=== PATIENT | female | born 1990 | race Caucasian/White ===

== ENCOUNTER 2020-08-01 00:03 | Emergency (ER) | payer OTHER ==
[~2020-08-01] VITALS: Ht 165.1 cm; Wt 79.4 kg
[~2020-08-01 00:03] MED LIST: CRUTCH4 USE; NAPR500 PO; Pepcid40 MG PO; Zofran Odt4 MG SL
== END 2020-08-01 00:54 | disposition home or self-care (01) ==
LOC: ER 00:03
DX: S01.01XA Laceration without foreign body of scalp, initial encounter (principal); F17.200 Nicotine dependence, unspecified, uncomplicated; W01.0XXA Fall on same level from slipping, tripping and stumbling without subsequent striking against object, initial encounter
CPT/HCPCS: 12001; 99282-25

== ENCOUNTER 2020-08-10 13:20 | Emergency (ER) | payer OTHER ==
[~2020-08-10] VITALS: Ht 165.1 cm; Wt 79.4 kg
== END 2020-08-10 14:00 | disposition home or self-care (01) ==
LOC: ER 13:20
DX: S01.01XD Laceration without foreign body of scalp, subsequent encounter (principal); F17.210 Nicotine dependence, cigarettes, uncomplicated; X58.XXXD Exposure to other specified factors, subsequent encounter

== ENCOUNTER → 2021-12-30 | Outpatient (CLI) | payer OTHER | END | disposition home or self-care (01) | LOC: LAB SHORT 14:58 → PLD 14:58 | DX: L72.11 Pilar cyst (principal); D48.5 Neoplasm of uncertain behavior of skin | CPT/HCPCS: 88304; 88305 ==

== ENCOUNTER → 2021-12-31 | Outpatient (CLI) | payer OTHER ==
[2022-01-04 15:10] LABS: HPV 16 Negative (Negative); HPV 18 Negative (Negative); HPV OTHER HR TYPES Negative (Negative)
== END | disposition home or self-care (01) ==
LOC: LAB 15:30 → LAB SHORT 15:30
PROVIDERS: Nurse Practitioner Family
DX: Z11.51 Encounter for screening for human papillomavirus (HPV) (principal)
CPT/HCPCS: 87624; G0123